=== PATIENT | male | born 1965 | race Caucasian/White ===

== ENCOUNTER 2016-10-19 10:57 | Inpatient (IN) | payer MEDICARE, OTHER ==
[~2016-10-19] VITALS: Ht 170.2 cm; Wt 69.5 kg
[~2016-10-19 10:57] MED LIST: ATOR10TA69 PO; DONE5TAB26 PO; INSLAN SQ; METF500T4 PO; OLAN5TAB27 PO; OXYB5TAB27 PO
[2016-10-19] MEDS ORDERED: DIVA500T35 PO (11:23)
[2016-10-19] MEDS ORDERED: FOLI1 PO (11:23)
[2016-10-19] MEDS ORDERED: NIZO215C TP (11:23)
[2016-10-19] MEDS ORDERED: IBUP-1547 PO (11:23)
[2016-10-19] MEDS ORDERED: RISP.5 PO (11:23)
[2016-10-19] MEDS ORDERED: LORA2VIA8 PO (11:23)
[2016-10-19] MEDS ORDERED: DIPH25 PO (11:23)
[2016-10-19] MEDS ORDERED: NOVOFINE SQ (11:23)
[2016-10-19] MEDS ORDERED: TRIAMCINOLON TP (11:23)
[2016-10-19] MEDS ORDERED: METO50 PO (11:23)
[2016-10-19] MEDS ORDERED: SODIUM CHLORIDE 0.9% 1,000 ML IV ONE ×2 (12:00→13:00)
[2016-10-19 12:16] LABS: EOSINOPHILS % (AUTO) 0.2 % (1.0-6.0); HEMATOCRIT 33.3 % (41-53); HEMOGLOBIN 10.8 g/dL (13.5-17.5); LYMPHOCYTES # (AUTO) 2.6 K/uL (1.0-4.8); LYMPHOCYTES % (AUTO) 14.1 % (22.0-44.0); MEAN CORPUSCULAR HEMOGLOBIN 30.6 pg (26.0-34.0); MEAN CORPUSCULAR HGB CONC 32.5 G/dL (31.0-37.0); MEAN CORPUSCULAR VOLUME 94 fL (80-100); MONOCYTES # (AUTO) 3.3 K/uL (0.1-1.0); MONOCYTES % (AUTO) 18.3 % (2.0-9.0); NEUTROPHILS # (AUTO) 12.3 K/uL (1.8-7.7); NEUTROPHILS % (AUTO) 67.4 % (40.0-70.0); PLATELET COUNT (AUTO) 253 K/uL (150-450); RED BLOOD CELL COUNT(AUTO) 3.54 MIL/uL (4.50-5.90); RED CELL DISTRIBUTION WIDTH 16.2 % (11.5-14.5); WHITE BLOOD COUNT (AUTO) 18.2 K/uL (4.5-11.0)
[2016-10-19 12:24] LABS: INR 1.1 (0.9-1.1); PROTHROMBIN TIME 11.3 SEC (9.4-11.6)
[2016-10-19 12:44] LABS: TROPONIN I < 0.02 ng/mL (0.00-0.05)
[2016-10-19 12:49] LABS: AMMONIA < 10 umol/L (11-32); LACTIC ACID 2.2 mmol/L (0.4-2.0)
[2016-10-19 12:57] LABS: ANION GAP 6 mmol/L (8-16); CARBON DIOXIDE 33 mmol/L (22-29); CHLORIDE 101 mmol/L (98-107); SODIUM SERUM 140 mmol/L (136-145)
[2016-10-19 12:58] LABS: ALANINE AMINOTRANSFERASE 116 U/L (12-78); ALBUMIN 1.7 g/dL (3.4-5.0); ASPARTATE AMINOTRANSFERASE 153 U/L (15-37); BILIRUBIN,TOTAL 0.5 mg/dL (0.1-1.0); CALCIUM, TOTAL 8.7 mg/dL (8.8-10.5); CREATINE KINASE, TOTAL 125 U/L (39-308); CREATININE 0.71 mg/dL (0.60-1.30); GLOMERULAR FILTR. RATE CALC > 60 mL/min (>60); TOTAL PROTEIN, SERUM 5.9 g/dL (6.4-8.2); UREA NITROGEN, BLOOD 16 mg/dL (7-18)
[2016-10-19 13:04] LABS: CREATINE KINASE MB < 0.5 ng/mL (0-5)
[2016-10-19] MEDS ORDERED: BARIUM SULFATE 0.1% SUSPENSION 450 ML BOTTLE PO ONE (13:45)
[2016-10-19] MEDS ORDERED: IOVERSOL 350 MG/ML 100 ML VIAL ONE ×2 (14:01→15:47)
[2016-10-19] MEDS ORDERED: SODIUM CHLORIDE 0.9% 100 ML ONE ×2 (14:02→15:46)
[2016-10-19 14:08] LABS: REFLEX LACTIC ACID? YES YES
[2016-10-19] MEDS: POTASSIUM CHL 10 MEQ/WATER 50 ML IV SCH ×5 (14:08→18:33)
[2016-10-19 15:58] LABS: APPEARANCE,URINE CLOUDY (CLEAR); GLUCOSE, URINE (UA) NEGATIVE (NEGATIVE); KETONES,URINE NEGATIVE (NEGATIVE); LEUKOCYTE ESTERASE ,URINE LARGE (NEGATIVE); OCCULT BLOOD,URINE SMALL (NEGATIVE); PROTEIN,URINE TRACE (NEGATIVE)
[2016-10-19 16:06] LABS: ADD UA MICROSCOPIC YES
[2016-10-19 16:07] LABS: SQUAMOUS EPITHELIAL CELL,UR Rare /LPF (None Seen)
[2016-10-19 16:08] LABS: WBC,URINE 51-100 /HPF (0-5)
[2016-10-19] MEDS ORDERED: PIPERACILLIN/TAZO 3.375 GM/D5W 50 ML IV ONE (16:45)
[2016-10-19] MEDS ORDERED: ACETAMINOPHEN 325 MG TABLET PO PRN (18:30)
[2016-10-19] MEDS ORDERED: ZOLPIDEM TARTRATE 10 MG TABLET PO PRN (18:30)
[2016-10-19] MEDS ORDERED: ONDANSETRON HCL 4 MG/2 ML VIAL IVP PRN (18:30)
[2016-10-19] MEDS ORDERED: OxyCODONE HCL/ACETAMINOPHEN 5-325 MG TABLET PO PRN (18:30)
[2016-10-19] MEDS ORDERED: DEXTROSE 50%-WATER 25 GM/50 ML SYRINGE IVP PRN (18:30)
[2016-10-19 20:35] VITALS: BP 126/72
[2016-10-19] MEDS: FOLIC ACID 1 MG TABLET PO SCH (21:19)
[2016-10-19] MEDS: LORazepam 2 MG/ML VIAL IVP SCH (21:19)
[2016-10-19] MEDS: DiphenhydrAMINE HCL 25 MG CAPSULE PO SCH (21:19)
[2016-10-19] MEDS: DONEPEZIL HCL 5 MG TABLET PO SCH (21:19)
[2016-10-19] MEDS: RisperiDONE 0.5 MG TABLET PO SCH (21:20)
[2016-10-19] MEDS: KETOCONAZOLE 2% 15 GM CREAM TP SCH (21:20)
[2016-10-19] MEDS: OLANZapine 5 MG TABLET PO SCH (21:20)
[2016-10-19 23:31] VITALS: BP 143/78
[2016-10-20] MEDS: PIPERACILLIN/TAZO 3.375 GM/D5W 50 ML IV SCH ×5 (00:24→23:33)
[2016-10-20] MEDS: HEPARIN SODIUM,PORCINE 5,000 UNITS/ML VIAL SQ SCH ×4 (00:27→23:41)
[2016-10-20 04:17] VITALS: BP 137/82
[2016-10-20 07:57] VITALS: BP 120/64
[2016-10-20 08:06] LABS: HEMATOCRIT 32.9 % (41-53); MEAN CORPUSCULAR HEMOGLOBIN 31.3 pg (26.0-34.0); MEAN CORPUSCULAR HGB CONC 33.3 G/dL (31.0-37.0); MEAN CORPUSCULAR VOLUME 94 fL (80-100); PLATELET COUNT (AUTO) 295 K/uL (150-450); RED CELL DISTRIBUTION WIDTH 16.2 % (11.5-14.5); WHITE BLOOD COUNT (AUTO) 19.5 K/uL (4.5-11.0)
[2016-10-20 08:22] LABS: ALANINE AMINOTRANSFERASE 81 U/L (12-78); ALBUMIN 1.5 g/dL (3.4-5.0); ANION GAP 10 mmol/L (8-16); ASPARTATE AMINOTRANSFERASE 87 U/L (15-37); BILIRUBIN,TOTAL 0.6 mg/dL (0.1-1.0); CALCIUM, TOTAL 7.9 mg/dL (8.8-10.5); CARBON DIOXIDE 27 mmol/L (22-29); CHLORIDE 103 mmol/L (98-107); CREATININE 0.52 mg/dL (0.60-1.30); GLOMERULAR FILTR. RATE CALC > 60 mL/min (>60); SODIUM SERUM 140 mmol/L (136-145); TOTAL PROTEIN, SERUM 5.9 g/dL (6.4-8.2); UREA NITROGEN, BLOOD 10 mg/dL (7-18)
[2016-10-20 08:29] LABS: POTASSIUM 2.6 mmol/L (3.5-5.1)
[2016-10-20] MEDS: MetFORMIN HCL 500 MG TABLET PO SCH (08:49)
[2016-10-20] MEDS: DIVALPROEX SODIUM 500 MG DR TABLET PO SCH (08:50)
[2016-10-20] MEDS: ATORVASTATIN CALCIUM 10 MG TABLET PO SCH (08:50)
[2016-10-20] MEDS: KETOCONAZOLE 2% 15 GM CREAM TP SCH ×2 (08:51→23:33)
[2016-10-20] MEDS: FOLIC ACID 1 MG TABLET PO SCH ×2 (08:51→21:05)
[2016-10-20] MEDS: METOPROLOL TARTRATE 50 MG TABLET PO SCH (08:51)
[2016-10-20] MEDS: OXYBUTYNIN CHLORIDE 5 MG ER TABLET PO SCH (08:51)
[2016-10-20] MEDS ORDERED: MAGNESIUM OXIDE 400 MG TABLET PO PRN (09:00)
[2016-10-20] MEDS ORDERED: MAGNESIUM SULFATE 4 GM/WATER 100 ML IV PRN (09:00)
[2016-10-20] MEDS ORDERED: POTASSIUM CHLORIDE 20 MEQ ER TABLET PO PRN (09:00)
[2016-10-20] MEDS: LORazepam 2 MG/ML VIAL IVP SCH ×2 (09:00→21:06)
[2016-10-20] MEDS ORDERED: MAGNESIUM SULFATE 2 GM in DEXTROSE 5%-WATER 50 ML IV PRN (09:00)
[2016-10-20] MEDS: PANTOPRAZOLE SODIUM 40 MG DR TABLET PO SCH (09:07)
[2016-10-20] MEDS: POTASSIUM CHL 10 MEQ/WATER 50 ML IV PRN ×4 (09:19→14:25)
[2016-10-20 09:39] LABS: BAND NEUTROPHILS % (MANUAL) 4 % (1-5); LYMPHOCYTES % (MANUAL) 20 % (22-44); MYELOCYTES % 1 % (0-0); TOTAL CELLS COUNTED 100
[2016-10-20 09:41] LABS: RBC MORPHOLOGY COMMENT ABNORMAL R
[2016-10-20 10:50] VITALS: BP 130/68
[2016-10-20] MEDS ORDERED: POTASSIUM CHLORIDE 40 MEQ in SODIUM CHLORIDE 0.9% 1,000 ML IV ONE (11:30)
[2016-10-20] MEDS: INSULIN ASPART 100 UNITS/ML SQ PRN ×3 (13:19→21:21)
[2016-10-20 15:06] VITALS: BP 112/76
[2016-10-20] MEDS: BISACODYL 10 MG RECTAL RECTAL SUPPOSITORY PR SCH ×2 (15:52→21:06)
[2016-10-20 18:17] LABS: GLUCOSE,POINT OF CARE 107 MG/DL (70-110)
[2016-10-20 18:17] LABS: GLUCOSE COMMENT 1 Received Meds; GLUCOSE,POINT OF CARE 181 MG/DL (70-110)
[2016-10-20 19:22] VITALS: BP 116/68
[2016-10-20] MEDS: DiphenhydrAMINE HCL 25 MG CAPSULE PO SCH (21:05)
[2016-10-20] MEDS: RisperiDONE 0.5 MG TABLET PO SCH (21:05)
[2016-10-20] MEDS: OLANZapine 5 MG TABLET PO SCH (21:06)
[2016-10-20] MEDS: DONEPEZIL HCL 5 MG TABLET PO SCH (22:12)
[2016-10-21] VITALS (7 sets, daily range): BP systolic 109–144; BP diastolic 66–79
[2016-10-21] MEDS: PIPERACILLIN/TAZO 3.375 GM/D5W 50 ML IV SCH ×4 (05:56→22:55)
[2016-10-21] MEDS: INSULIN ASPART 100 UNITS/ML SQ PRN ×4 (06:42→21:16)
[2016-10-21 08:00] LABS: HEMATOCRIT 32.4 % (41-53); HEMOGLOBIN 10.5 g/dL (13.5-17.5); MEAN CORPUSCULAR HEMOGLOBIN 30.1 pg (26.0-34.0); MEAN CORPUSCULAR HGB CONC 32.2 G/dL (31.0-37.0); MEAN CORPUSCULAR VOLUME 93 fL (80-100); PLATELET COUNT (AUTO) 435 K/uL (150-450); RED BLOOD CELL COUNT(AUTO) 3.48 MIL/uL (4.50-5.90); RED CELL DISTRIBUTION WIDTH 17.2 % (11.5-14.5); WHITE BLOOD COUNT (AUTO) 16.4 K/uL (4.5-11.0)
[2016-10-21 08:39] LABS: ALANINE AMINOTRANSFERASE 81 U/L (12-78); ALBUMIN 1.4 g/dL (3.4-5.0); ANION GAP 6 mmol/L (8-16); ASPARTATE AMINOTRANSFERASE 94 U/L (15-37); BILIRUBIN,TOTAL 0.4 mg/dL (0.1-1.0); CALCIUM, TOTAL 8.2 mg/dL (8.8-10.5); CARBON DIOXIDE 30 mmol/L (22-29); CHLORIDE 108 mmol/L (98-107); CREATININE 0.65 mg/dL (0.60-1.30); GLOMERULAR FILTR. RATE CALC > 60 mL/min (>60); POTASSIUM 3.6 mmol/L (3.5-5.1); SODIUM SERUM 144 mmol/L (136-145); TOTAL PROTEIN, SERUM 5.8 g/dL (6.4-8.2); UREA NITROGEN, BLOOD 10 mg/dL (7-18)
[2016-10-21] MEDS: BISACODYL 10 MG RECTAL RECTAL SUPPOSITORY PR SCH ×2 (09:00→20:46)
[2016-10-21] MEDS: HEPARIN SODIUM,PORCINE 5,000 UNITS/ML VIAL SQ SCH ×2 (09:31→16:44)
[2016-10-21] MEDS: DIVALPROEX SODIUM 500 MG DR TABLET PO SCH (09:33)
[2016-10-21] MEDS: FOLIC ACID 1 MG TABLET PO SCH ×2 (09:33→20:47)
[2016-10-21] MEDS: OXYBUTYNIN CHLORIDE 5 MG ER TABLET PO SCH (09:34)
[2016-10-21] MEDS: PANTOPRAZOLE SODIUM 40 MG DR TABLET PO SCH (09:34)
[2016-10-21] MEDS: METOPROLOL TARTRATE 50 MG TABLET PO SCH (09:35)
[2016-10-21] MEDS: LORazepam 2 MG/ML VIAL IVP SCH ×2 (09:36→20:48)
[2016-10-21] MEDS: ATORVASTATIN CALCIUM 10 MG TABLET PO SCH (09:58)
[2016-10-21] MEDS: KETOCONAZOLE 2% 15 GM CREAM TP SCH ×2 (09:58→20:47)
[2016-10-21 10:02] LABS: RBC MORPHOLOGY COMMENT ABNORMAL RBC MORPH
[2016-10-21 10:07] LABS: BAND NEUTROPHILS % (MANUAL) 9 % (1-5); LYMPHOCYTES % (MANUAL) 13 % (22-44); MYELOCYTES % 2 % (0-0); TOTAL CELLS COUNTED 100
[2016-10-21] MEDS: POTASSIUM CHL 10 MEQ/WATER 50 ML IV PRN ×3 (11:59→14:27)
[2016-10-21] MEDS: MetFORMIN HCL 500 MG TABLET PO SCH (17:35)
[2016-10-21] MEDS: OLANZapine 5 MG TABLET PO SCH (20:47)
[2016-10-21] MEDS: RisperiDONE 0.5 MG TABLET PO SCH (20:47)
[2016-10-21] MEDS: DiphenhydrAMINE HCL 25 MG CAPSULE PO SCH (20:47)
[2016-10-21] MEDS: DONEPEZIL HCL 5 MG TABLET PO SCH (20:47)
[2016-10-22] MEDS: HEPARIN SODIUM,PORCINE 5,000 UNITS/ML VIAL SQ SCH ×4 (00:19→23:29)
[2016-10-22 04:44] VITALS: BP 133/86
[2016-10-22] MEDS: PIPERACILLIN/TAZO 3.375 GM/D5W 50 ML IV SCH ×4 (04:58→23:27)
[2016-10-22 06:42] LABS: GLUCOSE,POINT OF CARE 115 MG/DL (70-110)
[2016-10-22 06:46] LABS: BASOPHILS % (AUTO) 0.6 % (0.0-2.0); EOSINOPHILS % (AUTO) 1.3 % (1.0-6.0); HEMATOCRIT 34.3 % (41-53); HEMOGLOBIN 10.9 g/dL (13.5-17.5); LYMPHOCYTES % (AUTO) 26.7 % (22.0-44.0); MEAN CORPUSCULAR HEMOGLOBIN 30.2 pg (26.0-34.0); MEAN CORPUSCULAR VOLUME 95 fL (80-100); MONOCYTES # (AUTO) 3.5 K/uL (0.1-1.0); MONOCYTES % (AUTO) 18.7 % (2.0-9.0); NEUTROPHILS # (AUTO) 9.9 K/uL (1.8-7.7); NEUTROPHILS % (AUTO) 52.7 % (40.0-70.0); PLATELET COUNT (AUTO) 490 K/uL (150-450); RED BLOOD CELL COUNT(AUTO) 3.62 MIL/uL (4.50-5.90); RED CELL DISTRIBUTION WIDTH 16.9 % (11.5-14.5); WHITE BLOOD COUNT (AUTO) 18.9 K/uL (4.5-11.0)
[2016-10-22 07:18] LABS: ALANINE AMINOTRANSFERASE 72 U/L (12-78); ALBUMIN 1.5 g/dL (3.4-5.0); ANION GAP 7 mmol/L (8-16); ASPARTATE AMINOTRANSFERASE 78 U/L (15-37); BILIRUBIN,TOTAL 0.3 mg/dL (0.1-1.0); CALCIUM, TOTAL 8.5 mg/dL (8.8-10.5); CARBON DIOXIDE 31 mmol/L (22-29); CHLORIDE 105 mmol/L (98-107); CREATININE 0.64 mg/dL (0.60-1.30); GLOMERULAR FILTR. RATE CALC > 60 mL/min (>60); POTASSIUM 3.6 mmol/L (3.5-5.1); SODIUM SERUM 143 mmol/L (136-145); TOTAL PROTEIN, SERUM 6.1 g/dL (6.4-8.2); UREA NITROGEN, BLOOD 8 mg/dL (7-18)
[2016-10-22 07:38] VITALS: BP 130/71
[2016-10-22] MEDS: METOPROLOL TARTRATE 50 MG TABLET PO SCH (08:08)
[2016-10-22] MEDS: DIVALPROEX SODIUM 500 MG DR TABLET PO SCH (08:09)
[2016-10-22] MEDS: OXYBUTYNIN CHLORIDE 5 MG ER TABLET PO SCH (08:09)
[2016-10-22] MEDS: MetFORMIN HCL 500 MG TABLET PO SCH ×2 (08:09→17:07)
[2016-10-22] MEDS: BISACODYL 10 MG RECTAL RECTAL SUPPOSITORY PR SCH ×2 (08:09→20:06)
[2016-10-22] MEDS: PANTOPRAZOLE SODIUM 40 MG DR TABLET PO SCH (08:09)
[2016-10-22] MEDS: ATORVASTATIN CALCIUM 10 MG TABLET PO SCH (08:09)
[2016-10-22] MEDS: LORazepam 2 MG/ML VIAL IVP SCH ×2 (08:09→20:05)
[2016-10-22] MEDS: FOLIC ACID 1 MG TABLET PO SCH ×2 (08:09→20:06)
[2016-10-22] MEDS: KETOCONAZOLE 2% 15 GM CREAM TP SCH ×2 (08:10→20:05)
[2016-10-22 08:37] LABS: GLUCOSE COMMENT 1 Received Meds; GLUCOSE,POINT OF CARE 149 MG/DL (70-110)
[2016-10-22 09:03] LABS: RBC MORPHOLOGY COMMENT ABNORMAL RBC MORPH
[2016-10-22 11:03] VITALS: BP 112/71
[2016-10-22] MEDS: INSULIN ASPART 100 UNITS/ML SQ PRN (11:08)
[2016-10-22 15:47] VITALS: BP 122/71
[2016-10-22 17:52] LABS: GLUCOSE COMMENT 1 Received Meds; GLUCOSE,POINT OF CARE 155 MG/DL (70-110)
[2016-10-22 17:52] LABS: GLUCOSE COMMENT 1 Received Meds; GLUCOSE,POINT OF CARE 223 MG/DL (70-110)
[2016-10-22 17:52] LABS: GLUCOSE COMMENT 1 Received Meds; GLUCOSE,POINT OF CARE 177 MG/DL (70-110)
[2016-10-22 17:52] LABS: GLUCOSE COMMENT 1 Received Meds; GLUCOSE,POINT OF CARE 153 MG/DL (70-110)
[2016-10-22 17:53] LABS: GLUCOSE,POINT OF CARE 119 MG/DL (70-110)
[2016-10-22 17:53] LABS: GLUCOSE COMMENT 1 Received Meds; GLUCOSE,POINT OF CARE 168 MG/DL (70-110)
[2016-10-22 17:53] LABS: GLUCOSE,POINT OF CARE 136 MG/DL (70-110)
[2016-10-22 18:01] LABS: GLUCOSE COMMENT 1 Received Meds; GLUCOSE,POINT OF CARE 161 MG/DL (70-110)
[2016-10-22 20:02] VITALS: BP 137/84
[2016-10-22] MEDS: DiphenhydrAMINE HCL 25 MG CAPSULE PO SCH (20:06)
[2016-10-22] MEDS: OLANZapine 5 MG TABLET PO SCH (20:06)
[2016-10-22] MEDS: DONEPEZIL HCL 5 MG TABLET PO SCH (20:06)
[2016-10-22] MEDS: RisperiDONE 0.5 MG TABLET PO SCH (20:06)
[2016-10-22 23:30] VITALS: BP 148/67
[2016-10-23 05:09] VITALS: BP 123/67
[2016-10-23] MEDS: PIPERACILLIN/TAZO 3.375 GM/D5W 50 ML IV SCH ×2 (05:20→11:23)
[2016-10-23 06:42] LABS: HEMATOCRIT 31.1 % (41-53); HEMOGLOBIN 10.1 g/dL (13.5-17.5); MEAN CORPUSCULAR HEMOGLOBIN 30.8 pg (26.0-34.0); MEAN CORPUSCULAR HGB CONC 32.5 G/dL (31.0-37.0); MEAN CORPUSCULAR VOLUME 95 fL (80-100); PLATELET COUNT (AUTO) 579 K/uL (150-450); RED BLOOD CELL COUNT(AUTO) 3.27 MIL/uL (4.50-5.90); WHITE BLOOD COUNT (AUTO) 16.6 K/uL (4.5-11.0)
[2016-10-23 07:01] LABS: ALANINE AMINOTRANSFERASE 67 U/L (12-78); ALBUMIN 1.7 g/dL (3.4-5.0); ANION GAP 3 mmol/L (8-16); ASPARTATE AMINOTRANSFERASE 69 U/L (15-37); BILIRUBIN,TOTAL 0.3 mg/dL (0.1-1.0); CALCIUM, TOTAL 8.9 mg/dL (8.8-10.5); CARBON DIOXIDE 34 mmol/L (22-29); CHLORIDE 103 mmol/L (98-107); CREATININE 0.71 mg/dL (0.60-1.30); GLOMERULAR FILTR. RATE CALC > 60 mL/min (>60); POTASSIUM 3.8 mmol/L (3.5-5.1); SODIUM SERUM 140 mmol/L (136-145); TOTAL PROTEIN, SERUM 6.3 g/dL (6.4-8.2); UREA NITROGEN, BLOOD 11 mg/dL (7-18)
[2016-10-23 07:07] VITALS: BP 114/64
[2016-10-23 08:44] LABS: BAND NEUTROPHILS % (MANUAL) 10 % (1-5); LYMPHOCYTES % (MANUAL) 32 % (22-44); METAMYELOCYTES % 1 % (0-0); TOTAL CELLS COUNTED 100
[2016-10-23 08:45] LABS: RBC MORPHOLOGY COMMENT NORMAL RBC MORPH
[2016-10-23] MEDS: HEPARIN SODIUM,PORCINE 5,000 UNITS/ML VIAL SQ SCH ×2 (09:08→16:00)
[2016-10-23] MEDS: OXYBUTYNIN CHLORIDE 5 MG ER TABLET PO SCH (09:08)
[2016-10-23] MEDS: PANTOPRAZOLE SODIUM 40 MG DR TABLET PO SCH (09:08)
[2016-10-23] MEDS: FOLIC ACID 1 MG TABLET PO SCH (09:08)
[2016-10-23] MEDS: ATORVASTATIN CALCIUM 10 MG TABLET PO SCH (09:08)
[2016-10-23] MEDS: METOPROLOL TARTRATE 50 MG TABLET PO SCH (09:08)
[2016-10-23] MEDS: MetFORMIN HCL 500 MG TABLET PO SCH (09:08)
[2016-10-23] MEDS: LORazepam 2 MG/ML VIAL IVP SCH (09:08)
[2016-10-23] MEDS: DIVALPROEX SODIUM 500 MG DR TABLET PO SCH (09:09)
[2016-10-23] MEDS: BISACODYL 10 MG RECTAL RECTAL SUPPOSITORY PR SCH (09:09)
[2016-10-23] MEDS: KETOCONAZOLE 2% 15 GM CREAM TP SCH (09:09)
[2016-10-23 11:19] VITALS: BP 110/68
[2016-10-23] MEDS ORDERED: SODIUM CHLORIDE 0.9% 500 ML IV ONE (11:26)
[2016-10-23 15:25] VITALS: BP 110/57
[2016-10-23 17:32] LABS: GLUCOSE,POINT OF CARE 108 MG/DL (70-110)
[2016-10-23 17:32] LABS: GLUCOSE COMMENT 1 Received Meds; GLUCOSE,POINT OF CARE 134 MG/DL (70-110)
[2016-10-23 17:37] LABS: GLUCOSE,POINT OF CARE 128 MG/DL (70-110)
== END 2016-10-23 16:15 | DRG 871 ==
LOC: EMS 10:59 → 5N 17:47
PROVIDERS: ADMIT Hospitalist; ATTEND Hospitalist
DX: A41.9 Sepsis, unspecified organism (principal); E43 Unspecified severe protein-calorie malnutrition; F84.0 Autistic disorder; N39.0 Urinary tract infection, site not specified; K56.7 Ileus, unspecified; D64.9 Anemia, unspecified; E87.6 Hypokalemia; G80.9 Cerebral palsy, unspecified; R32 Unspecified urinary incontinence; B96.89 Other specified bacterial agents as the cause of diseases classified elsewhere; E11.9 Type 2 diabetes mellitus without complications; E78.00 Pure hypercholesterolemia, unspecified; E78.5 Hyperlipidemia, unspecified; E86.0 Dehydration; G40.909 Epilepsy, unspecified, not intractable, without status epilepticus; I10 Essential (primary) hypertension; F32.9 Major depressive disorder, single episode, unspecified; R74.0 Nonspecific elevation of levels of transaminase and lactic acid dehydrogenase [LDH]; Z79.84 Long term (current) use of oral hypoglycemic drugs; Z79.899 Other long term (current) drug therapy; Z68.24 Body mass index [BMI] 24.0-24.9, adult
CPT/HCPCS: 70450; 74010; 74177; 82962; 83605; 83735; 84132; 87040; 87086; 93005; 96360; 96361; 96365; 99291; J1644; J2060; J2543; J3475; J3480; J7030; J7040; J7050; J7060

== ENCOUNTER 2018-08-15 06:10 | Day surgery (SDC) | payer OTHER, MEDICARE, MEDICAID ==
[~2018-08-15] VITALS: Ht 195.6 cm; Wt 73.2 kg
[~2018-08-15 06:10] MED LIST changes: +ACET-784 PO; +ASPI-1182 PO; +BISA10S PR; +DIVA-78 PO; +FE PR; +FERR-89 PO; +FOLI1 PO; +INSU100V SQ; +LORA1TAB3 PO; +LORA2TAB2 PO; +METF-444 PO; -METF500T4 PO; +METO50 PO; +MOM30 PO; +OLAN10TA3 PO; -OLAN5TAB27 PO; -OXYB5TAB27 PO; +OXYB5XL PO; +RINGERS SOLUTION,LACTATED 1,000 ML IV ONE; +RISP1 PO; +SITA100 PO
[2018-08-15] MEDS ORDERED: ONDANSETRON HCL 4 MG/2 ML VIAL IVP ONE (06:11)
[2018-08-15] MEDS ORDERED: LIDOCAINE/PF 2% 5 ML VIAL IM ONE (06:11)
[2018-08-15] MEDS ORDERED: DEXAMETHASONE SOD PHOS 4 MG/ML VIAL IVP ONE (06:11)
[2018-08-15] MEDS ORDERED: PROPOFOL 1% 20 ML VIAL IVP ONE (06:11)
[2018-08-15] MEDS ORDERED: SUCCINYLCHOLINE CHLORIDE 20 MG/ML 10 ML VIAL IVP ONE (06:11)
[2018-08-15] MEDS ORDERED: FentaNYL CITRATE-PF 100 MCG/2 ML VIAL IVP ONE (06:11)
[2018-08-15] MEDS ORDERED: RINGERS SOLUTION,LACTATED 1,000 ML IV ONE (06:30)
[2018-08-15 07:03] LABS: GLUCOMETER DEV NAME(LOC) SDS 5; GLUCOSE,POINT OF CARE 176 MG/DL (70-110)
[2018-08-15] MEDS ORDERED: AMPICILLIN SODIUM 1 GM/VIAL ONE (08:17)
[2018-08-15] MEDS ORDERED: SODIUM CHLORIDE 0.9% 100 ML ONE (08:20)
== END 2018-08-15 12:25 | disposition home or self-care (01) ==
LOC: SURGERY 06:10
PROVIDERS: ATTEND Dentist General Practice
DX: K05.312 Chronic periodontitis, localized, moderate (principal); I10 Essential (primary) hypertension; E11.9 Type 2 diabetes mellitus without complications; F32.9 Major depressive disorder, single episode, unspecified; F84.0 Autistic disorder; G40.909 Epilepsy, unspecified, not intractable, without status epilepticus; F41.9 Anxiety disorder, unspecified; Z79.899 Other long term (current) drug therapy; Z98.890 Other specified postprocedural states
CPT/HCPCS: 41899; 82962; J0330; J1100; J2405; J2704; J3010; J3490; J7050; J7120; J0290

== ENCOUNTER 2020-12-02 06:31 | Day surgery (SDC) | payer OTHER, MEDICARE, MEDICAID ==
[~2020-12-02] VITALS: Ht 195.6 cm; Wt 88.6 kg
[~2020-12-02 06:31] MED LIST changes: -ASPI-1182 PO; +ASPI-1444 PO; -ATOR10TA69 PO; +ATOR10TA84 PO; -BISA10S PR; +BISA10SU11 PR; +DIVA-112 PO; -DIVA-78 PO; +FOLI-130 PO; -FOLI1 PO; +FURO40 PO; +INSNOV SQ; -INSU100V SQ; +LORA-1000 PO; +LORA-1001 PO; -LORA1TAB3 PO; -LORA2TAB2 PO; +METO2.5T4 PO; +MINO100C66 PO; +POTA8TAB71 PO; -RISP1 PO; +RISP2TAB45 PO
[2020-12-02] MEDS ORDERED: DEXAMETHASONE SOD PHOS 4 MG/ML VIAL IVP ONE (06:32)
[2020-12-02] MEDS ORDERED: ONDANSETRON HCL 4 MG/2 ML VIAL IVP ONE (06:32)
[2020-12-02] MEDS ORDERED: SUCCINYLCHOLINE CHLORIDE 20 MG/ML 10 ML VIAL IVP ONE (06:32)
[2020-12-02] MEDS ORDERED: FentaNYL CITRATE PF 100 MCG/2 ML VIAL IVP ONE (06:32)
[2020-12-02] MEDS ORDERED: LIDOCAINE/PF 2% 5 ML VIAL IM ONE (06:32)
[2020-12-02] MEDS ORDERED: PROPOFOL 1% 20 ML VIAL IVP ONE (06:32)
[2020-12-02] MEDS ORDERED: RINGERS SOLUTION,LACTATED 1,000 ML IV ONE (07:00)
[2020-12-02] MEDS ORDERED: AMPICILLIN SODIUM 1 GM/VIAL ONE (07:05)
[2020-12-02 07:07] LABS: COVID AG,FIA SOURCE NASOPHARYNGEAL
[2020-12-02 08:12] LABS: BASOPHILS % (AUTO) 1.3 % (0.0-2.0); EOSINOPHILS % (AUTO) 4.3 % (1.0-6.0); HEMATOCRIT 38.7 % (41-53); HEMOGLOBIN 13.3 g/dL (13.5-17.5); LYMPHOCYTES # (AUTO) 4.6 K/uL (1.0-4.8); LYMPHOCYTES % (AUTO) 33.8 % (22.0-44.0); MEAN CORPUSCULAR HEMOGLOBIN 31.5 pg (26.0-34.0); MEAN CORPUSCULAR HGB CONC 34.4 G/dL (31.0-37.0); MEAN CORPUSCULAR VOLUME 92 fL (80-100); MONOCYTES # (AUTO) 2.9 K/uL (0.1-1.0); MONOCYTES % (AUTO) 21.2 % (2.0-9.0); NEUTROPHILS # (AUTO) 5.4 K/uL (1.8-7.7); NEUTROPHILS % (AUTO) 39.4 % (40.0-70.0); PLATELET COUNT (AUTO) 334 K/uL (150-450); RED BLOOD CELL COUNT(AUTO) 4.23 MIL/uL (4.50-5.90)
[2020-12-02 08:24] LABS: ALANINE AMINOTRANSFERASE 41 U/L (12-78); ALKALINE PHOSPHATASE 146 U/L (46-116); ANION GAP 5 mmol/L (8-16); ASPARTATE AMINOTRANSFERASE 43 U/L (15-37); BILIRUBIN,TOTAL 0.3 mg/dL (0.1-1.0); CALCIUM, TOTAL 9.6 mg/dL (8.8-10.5); CHLORIDE 88 mmol/L (98-107); CREATININE 0.82 mg/dL (0.60-1.30); GLOMERULAR FILTR. RATE CALC > 60 mL/min (>60); GLUCOSE,RANDOM 122 mg/dL (70-110); SODIUM SERUM 136 mmol/L (136-145); TOTAL PROTEIN, SERUM 8.1 g/dL (6.4-8.2); UREA NITROGEN, BLOOD 23 mg/dL (7-18)
[2020-12-02 08:28] LABS: CARBON DIOXIDE 43 mmol/L (22-29)
== END 2020-12-02 12:10 | disposition home or self-care (01) ==
LOC: SURGERY 06:31 → EDSTATUS 08:30 → SURGERY 12:10
PROVIDERS: ATTEND Dentist General Practice
DX: K02.9 Dental caries, unspecified (principal); K05.30 Chronic periodontitis, unspecified; F84.0 Autistic disorder; I10 Essential (primary) hypertension; E11.9 Type 2 diabetes mellitus without complications; F41.9 Anxiety disorder, unspecified; K21.9 Gastro-esophageal reflux disease without esophagitis; D50.9 Iron deficiency anemia, unspecified; E78.5 Hyperlipidemia, unspecified; F03.90 Unspecified dementia, unspecified severity, without behavioral disturbance, psychotic disturbance, mood disturbance, and anxiety; F29 Unspecified psychosis not due to a substance or known physiological condition; Z79.899 Other long term (current) drug therapy; Z98.890 Other specified postprocedural states
CPT/HCPCS: 36415; 41899; 71045; 80053; 85025; 87426; 93005; C9803; J0290; J0330; J1100; J2405; J2704; J3010; J3490; J7120

== ENCOUNTER 2023-06-14 05:37 | Day surgery (SDC) | payer OTHER, MEDICARE, MEDICAID ==
[~2023-06-14] VITALS: Ht 188 cm; Wt 82.2 kg
[~2023-06-14 05:37] MED LIST changes: -ATOR10TA84 PO; +DONE-53 PO; -DONE5TAB26 PO; -FE PR; -FERR-89 PO; +FERR325T27 PO; -MOM30 PO; -OLAN10TA3 PO; +OLAN10TA74 PO; +OXYB-34 PO; -OXYB5XL PO; -RINGERS SOLUTION,LACTATED 1,000 ML IV ONE
[2023-06-14] MEDS ORDERED: DEXAMETHASONE SOD PHOS 4 MG/ML VIAL IVP ONE (05:38)
[2023-06-14] MEDS ORDERED: PROPOFOL 1% 20 ML VIAL IVP ONE (05:38)
[2023-06-14] MEDS ORDERED: LIDOCAINE/PF 2% 5 ML VIAL IM ONE (05:38)
[2023-06-14] MEDS ORDERED: ONDANSETRON HCL 4 MG/2 ML VIAL IVP ONE (05:38)
[2023-06-14] MEDS ORDERED: ROCURONIUM BROMIDE 10 MG/ML 5 ML VIAL IVP ONE (05:38)
[2023-06-14] MEDS ORDERED: SUGAMMADEX SODIUM 200 MG/2 ML VIAL IVP ONE (05:38)
[2023-06-14] MEDS ORDERED: AMPICILLIN SODIUM 2 GM/NS 100 ML IV ONE (06:36)
[2023-06-14] MEDS ORDERED: RINGERS SOLUTION,LACTATED 1,000 ML IV ONE ×2 (07:30→08:45)
[2023-06-14 07:46] LABS: BASOPHILS % (AUTO) 0.6 % (0.0-2.0); EOSINOPHILS % (AUTO) 0.5 % (1.0-6.0); HEMATOCRIT 40.4 % (41-53); HEMOGLOBIN 13.4 g/dL (13.5-17.5); LYMPHOCYTES # (AUTO) 3.7 K/uL (1.0-4.8); LYMPHOCYTES % (AUTO) 20.5 % (22.0-44.0); MEAN CORPUSCULAR HEMOGLOBIN 30.7 pg (26.0-34.0); MEAN CORPUSCULAR HGB CONC 33.2 G/dL (31.0-37.0); MEAN CORPUSCULAR VOLUME 93 fL (80-100); MONOCYTES # (AUTO) 2.6 K/uL (0.1-1.0); MONOCYTES % (AUTO) 14.5 % (2.0-9.0); NEUTROPHILS # (AUTO) 11.4 K/uL (1.8-7.7); NEUTROPHILS % (AUTO) 63.9 % (40.0-70.0); PLATELET COUNT (AUTO) 159 K/uL (150-450); RED BLOOD CELL COUNT(AUTO) 4.36 MIL/uL (4.50-5.90); RED CELL DISTRIBUTION WIDTH 15.8 % (11.5-14.5); WHITE BLOOD COUNT (AUTO) 17.9 K/uL (4.5-11.0)
[2023-06-14 07:55] LABS: ANION GAP 9 mmol/L (8-16); CALCIUM, TOTAL 9.3 mg/dL (8.8-10.5); CARBON DIOXIDE 34 mmol/L (22-29); CHLORIDE 98 mmol/L (98-107); CREATININE 0.78 mg/dL (0.60-1.30); GLOMERULAR FILTR. RATE CALC > 60 mL/min (>60); GLUCOSE,RANDOM 83 mg/dL (70-110); POTASSIUM 3.7 mmol/L (3.5-5.1); SODIUM SERUM 141 mmol/L (136-145); UREA NITROGEN, BLOOD 19 mg/dL (7-18)
[2023-06-14 07:58] LABS: PROTHROMBIN TIME 10.9 SEC (9.4-11.6)
[2023-06-14 08:04] LABS: ALANINE AMINOTRANSFERASE 27 U/L (12-78); ALKALINE PHOSPHATASE 195 U/L (46-116); ASPARTATE AMINOTRANSFERASE 31 U/L (15-37); BILIRUBIN,TOTAL 0.2 mg/dL (0.1-1.0); TOTAL PROTEIN, SERUM 6.9 g/dL (6.4-8.2)
== END 2023-06-14 13:10 | disposition home or self-care (01) ==
LOC: SURGERY 05:37
PROVIDERS: ATTEND Dentist General Practice
DX: K05.30 Chronic periodontitis, unspecified (principal); K02.9 Dental caries, unspecified; K03.6 Deposits [accretions] on teeth; E11.9 Type 2 diabetes mellitus without complications; Z79.01 Long term (current) use of anticoagulants; Z79.899 Other long term (current) drug therapy; Z98.890 Other specified postprocedural states
CPT/HCPCS: 41899; 71045; 80053; 85025; 85610; 85730; 36415; 93005; J0290; J2704; J1100; J3490 ×2; J2405; Q9967; J7120

== ENCOUNTER 2024-10-16 05:17 | Day surgery (SDC) | payer OTHER, MEDICARE ==
[~2024-10-16] VITALS: Ht 188 cm; Wt 73.8 kg
[~2024-10-16 05:17] MED LIST changes: -DIVA-112 PO; +DULA0.75 SQ; +EZET10TA57 PO; -FURO40 PO; -LORA-1000 PO; -LORA-1001 PO; +LORA1TAB25 PO; +LORA2TAB18 PO; -METO2.5T4 PO; -MINO100C66 PO; -SITA100 PO; +VALP250S23 PO
[2024-10-16] MEDS ORDERED: RINGERS SOLUTION,LACTATED 1,000 ML IV ONE (06:30)
[2024-10-16 07:37] LABS: PROTHROMBIN TIME 10.6 SEC (9.4-11.6)
[2024-10-16 07:42] LABS: ANION GAP 6 mmol/L (8-16); CALCIUM, TOTAL 9.4 mg/dL (8.8-10.5); CARBON DIOXIDE 30 mmol/L (22-29); CHLORIDE 101 mmol/L (98-107); CREATININE 0.63 mg/dL (0.60-1.30); GLOMERULAR FILTR. RATE CALC > 60 mL/min (>60); GLUCOSE,RANDOM 208 mg/dL (70-110); POTASSIUM 4.3 mmol/L (3.5-5.1); SODIUM SERUM 137 mmol/L (136-145); UREA NITROGEN, BLOOD 15 mg/dL (7-18)
[2024-10-16 07:43] LABS: EOSINOPHILS % (AUTO) 0.9 % (1.0-6.0); HEMATOCRIT 43.8 % (41-53); HEMOGLOBIN 14.6 g/dL (13.5-17.5); LYMPHOCYTES # (AUTO) 3.9 K/uL (1.0-4.8); LYMPHOCYTES % (AUTO) 31.5 % (22.0-44.0); MEAN CORPUSCULAR HEMOGLOBIN 31.9 pg (26.0-34.0); MEAN CORPUSCULAR HGB CONC 33.4 G/dL (31.0-37.0); MEAN CORPUSCULAR VOLUME 95 fL (80-100); MONOCYTES # (AUTO) 1.7 K/uL (0.1-1.0); MONOCYTES % (AUTO) 13.9 % (2.0-9.0); NEUTROPHILS # (AUTO) 6.5 K/uL (1.8-7.7); NEUTROPHILS % (AUTO) 52.7 % (40.0-70.0); PLATELET COUNT (AUTO) 332 K/uL (150-450); RED BLOOD CELL COUNT(AUTO) 4.59 MIL/uL (4.50-5.90); RED CELL DISTRIBUTION WIDTH 13.1 % (11.5-14.5); WHITE BLOOD COUNT (AUTO) 12.3 K/uL (4.5-11.0)
[2024-10-16 07:47] LABS: ALANINE AMINOTRANSFERASE 36 U/L (12-78); ALKALINE PHOSPHATASE 164 U/L (46-116); ASPARTATE AMINOTRANSFERASE 29 U/L (15-37); BILIRUBIN,TOTAL 0.3 mg/dL (0.1-1.0); TOTAL PROTEIN, SERUM 7.5 g/dL (6.4-8.2)
[2024-10-16 09:26] LABS: INFLUENZA TYPE A NEGATIVE FOR TYPE A (NEGATIVE); INFLUENZA TYPE B NEGATIVE FOR TYPE B (NEGATIVE)
== END 2024-10-16 09:05 | disposition home or self-care (01) ==
LOC: SURGERY 05:17
PROVIDERS: ATTEND Dentist General Practice
DX: K05.6 Periodontal disease, unspecified (principal); Z53.8 Procedure and treatment not carried out for other reasons; F41.9 Anxiety disorder, unspecified; F84.0 Autistic disorder; I10 Essential (primary) hypertension; E78.00 Pure hypercholesterolemia, unspecified; E11.65 Type 2 diabetes mellitus with hyperglycemia; D50.9 Iron deficiency anemia, unspecified; K21.9 Gastro-esophageal reflux disease without esophagitis; F03.90 Unspecified dementia, unspecified severity, without behavioral disturbance, psychotic disturbance, mood disturbance, and anxiety; Z79.899 Other long term (current) drug therapy; Z98.890 Other specified postprocedural states
CPT/HCPCS: 71045; 80053; 85025; 85610; 85730; 87804; 93005; 36415-L1; 36415-TC

== ENCOUNTER 2025-07-23 05:25 | Day surgery (SDC) | payer OTHER, MEDICARE ==
[~2025-07-23] VITALS: Ht 200.7 cm; Wt 90.0 kg
[2025-07-23 07:05] LABS: PLATELET COUNT (AUTO) 243 K/uL (150-450); RED BLOOD CELL COUNT(AUTO) 4.46 MIL/uL (4.50-5.90); RED CELL DISTRIBUTION WIDTH 13.3 % (11.5-14.5); WHITE BLOOD COUNT (AUTO) 12.7 K/uL (4.5-11.0)
[2025-07-23] MEDS ORDERED: RINGERS SOLUTION,LACTATED 1,000 ML IV ONE ×2 (07:28→09:55)
[2025-07-23 07:38] LABS: SODIUM SERUM 139 mmol/L (136-145)
[2025-07-23 07:40] LABS: CALCIUM, TOTAL 9.3 mg/dL (8.8-10.5); CREATININE 0.57 mg/dL (0.60-1.30); GLOMERULAR FILTR. RATE CALC > 60 mL/min (>60); GLUCOSE,RANDOM 174 mg/dL (70-110); UREA NITROGEN, BLOOD 14 mg/dL (7-18)
[2025-07-23 07:45] LABS: ASPARTATE AMINOTRANSFERASE 41 U/L (15-37); TOTAL PROTEIN, SERUM 7.5 g/dL (6.4-8.2)
[2025-07-23] MEDS ORDERED: AMPICILLIN SODIUM 2 GM/NS 100 ML IV ONE (07:55)
[2025-07-23] MEDS: RINGERS SOLUTION,LACTATED 1,000 ML IV ONE (08:30)
[2025-07-23] MEDS ORDERED: OXYMETAZOLINE HCL 0.05% 15 ML NASAL SPRAY NASAL ONE (10:32)
[2025-07-23] MEDS ORDERED: ONDANSETRON HCL 4 MG/2 ML VIAL ONE (12:00)
[2025-07-23] MEDS ORDERED: SUGAMMADEX SODIUM 200 MG/2 ML VIAL IVP ONE (12:00)
[2025-07-23] MEDS ORDERED: DEXAMETHASONE SOD PHOS 4 MG/ML VIAL ONE (12:00)
[2025-07-23] MEDS ORDERED: ROCURONIUM BROMIDE 10 MG/ML 5 ML VIAL ONE (12:00)
[2025-07-23] MEDS ORDERED: LIDOCAINE/PF 2% 5 ML VIAL ONE (12:00)
[2025-07-23] MEDS ORDERED: PROPOFOL 1% 20 ML VIAL IVP ONE (12:00)
== END 2025-07-23 11:35 | disposition home or self-care (01) ==
LOC: SURGERY 05:25
PROVIDERS: ATTEND Dentist General Practice
DX: K05.20 Aggressive periodontitis, unspecified (principal); K02.9 Dental caries, unspecified; K03.6 Deposits [accretions] on teeth; I10 Essential (primary) hypertension; E11.9 Type 2 diabetes mellitus without complications; F41.9 Anxiety disorder, unspecified; K21.9 Gastro-esophageal reflux disease without esophagitis; D50.9 Iron deficiency anemia, unspecified; E78.5 Hyperlipidemia, unspecified; F84.0 Autistic disorder
CPT/HCPCS: 41899; 71045; 80053; 85025; 85610; 85730; 36415; 93005; J0290; J2704; J1100; J3490 ×3; J2405; J7120